=== PATIENT | female | born 1965 | race Caucasian/White ===

== ENCOUNTER → 2016-05-30 | Outpatient (CLI) | payer OTHER ==
--- NOTE | 2016-05-30 15:44 | MA ---
Screening Digital Mammogram With iCAD Analysis Clinical Indications: Routine screening. Her mother was diagnosed with breast cancer in her 60s and h er maternal grandmother in her 80s. Technique: Standard cephalocaudal projections are obtained. Digital breast tomosynthesis was performe d in the MLO projection with reconstruction at 1.0 mm slice thickness and composite MLO views reconst ructed. This examination is processed by the iCAD computer aided detection system. Comparison: May 2015, May 2014, March 2013, January 2012, November 2010, November 2008. Breast density: Type D: Extremely dense. Findings: CAD was reviewed. No masses, suspicious calcifications or secondary signs of malignancy are seen. There has been no significant change in the appearance of either breast. Impression: Negative mammogram. BI-RADS 1. Recommendation: Routine mammographic screening in one year as long as physical examination is negativ e in this patient with extremely dense breast parenchyma. [facility] will send a result letter to the patient. Negative mammography should not preclude additional workup of a clinically suspicious finding. The patient's information is entered into a reminder system with a target due date for her next mammo gram.
== END ==
LOC: FIMAGING 08:09
DX: Z12.31 Encounter for screening mammogram for malignant neoplasm of breast (principal); Z80.3 Family history of malignant neoplasm of breast
CPT/HCPCS: G0202

== ENCOUNTER → 2016-11-01 | Outpatient (CLI) | payer OTHER | LOC: CIMAGING 14:52 | PROVIDERS: ATTEND Internal Medicine Endocrinology, Diabetes & Metabolism | DX: E04.2 Nontoxic multinodular goiter (principal) | CPT/HCPCS: 76536-PO ==

== ENCOUNTER → 2017-04-03 | Outpatient (CLI) | payer OTHER | LOC: FIMAGING 11:06 | PROVIDERS: ATTEND Family Medicine | DX: N76.0 Acute vaginitis (principal); D25.2 Subserosal leiomyoma of uterus; Z97.5 Presence of (intrauterine) contraceptive device ==

== ENCOUNTER → 2017-06-26 | Outpatient (CLI) | payer OTHER | LOC: FIMAGING 08:55 | PROVIDERS: ATTEND Family Medicine | DX: Z12.31 Encounter for screening mammogram for malignant neoplasm of breast (principal); Z80.3 Family history of malignant neoplasm of breast ==

== ENCOUNTER 2018-01-12 04:19 | Emergency (ER) | payer OTHER ==
--- NOTE | 2018-01-12 04:44 | EDPHY ---
H & P Time Seen by Provider: 01/12/18 04:23 HPI/ROS: CC: woke up short of breath HPI: This 52-year-old female with past medical history including hyperthyroidism treated with radiation, uterine fibroids, anxiety, and teofilo- menopausal presents to the emergency department today feeling short of breath upon awakening at 4 a.m.. She used [employer] Stripper (# 64) this afternoon on a project with her son. He wore a respirator and she did not. She feels that maybe this is a side effect of that chemical. She felt fine in the evening before bed and has not been ill recently. She had a late dinner consisting of pizza and went to bed a few hours afterward. She has had a problem with reflux in the past. She has not had her routine thyroid labs in about a year. She is feeling like her heart is racing, her mouth is dry and she also feels very anxious. She started feeling dizzy while here in the ER but did not feel dizzy earlier. She has a family history of blood clots on her mother's side but she herself has never been diagnosed with a clotting disorder. No recent surgery, long trips/travel, no leg pain or swelling. She drove herself here. REVIEW OF SYSTEMS: Constitutional: No fever, no chills. Eyes: No discharge. ENT: No sore throat. Respiratory: Occasional cough. No wheezing. See HPI. Cardiac: No chest pain. Gastrointestinal: No abdominal pain, no vomiting. Genitourinary: No dysuria. Musculoskeletal: No back pain. Skin: No rashes. Neurological: No headache. Past Medical/Surgical History: PMH: Includes hyperthyroidism treated with radiation approximately 12 years ago , uterine fibroids, teofilo-menopausal, anxiety, ?reflux PSH: Breast reduction Mammoplasty x 2, x2 FH: Mother/hypertension and breast cancer. Thyroid cancer and blood clots on mother's side of family. Father/high cholesterol and skin cancer Allergies: Sulfa, Anaproxen, Adhesive tape Medications: None Social: Denies tobacco products, denies alcohol or drug use. PCP: Dr. Ashly Meyer Smoking Status: Never smoked Physical Exam: General Appearance: Alert, anxious. Eyes: Pupils equal and round no pallor or injection. ENT, Mouth: Mucous membranes are moist. No pharyngeal erythema. Uvula midline. Respiratory: There are no retractions, lungs are clear to auscultation. No rales, rhonchi, or wheezing. Cardiovascular: Regular rate and rhythm. No murmurs, gallops, or rubs. No ectopic beats. Gastrointestinal: Abdomen is soft and nontender, no masses, bowel sounds normal. Neurological: Awake and alert, sensory and motor exams grossly normal. Skin: Warm and dry, no rashes. Musculoskeletal: Neck is supple and nontender. Extremities are symmetrical, full range of motion. No calf swelling, warmth, cords, or erythema. Psychiatric: Patient is oriented X 3, there is no agitation. DIFFERENTIAL DIAGNOSIS: After history and physical exam differential diagnosis was considered for but not limited to: Chemical pneumonitis, pulmonary embolism , pericardial effusion, gastroesophageal reflux disease, anxiety, arrhythmia, anemia, electrolyte imbalance, hyperthyroidism, symptoms related to menopause. Constitutional: Initial Vital Signs Temperature (C) 97.3 F 01/12/18 04:20 Heart Rate 64 01/12/18 04:20 Respiratory Rate 18 01/12/18 04:20 Blood Pressure 110/78 01/12/18 04:20 O2 Sat (%) 99 01/12/18 04:20 O2 Delivery Mode Room Air Allergies/Adverse Reactions: Sulfa (Sulfonamide Antibiotics) Allergy (Severe, Verified 01/12/18 04:24) Fever Anaproxen Allergy (Severe, Uncoded 03/31/14 13:29) Facial swelling Tape adhesive Allergy (Severe, Uncoded 03/31/14 13:29) Rash, welts Home Medications: Medication Instructions Recorded NK [No Known Home Meds] 01/12/18 Medical Decision Making - Diagnostics EKG Interpretation: NSR, HR 60, Low voltage, No electrical alternans, no ectopic beats, no acute ischemic changes. ED Course/Re-evaluation: The patient was seen and examined. Vital signs were reviewed. The patient's heart rate was 65 beats per minute and her oxygen saturation was 98-100% on room air. Her blood pressure was 110/74. She does not meet PERC criteria to order a D-dimer and I have low suspicion for pulmonary embolism. Her EKG shows a sinus rhythm with a heart rate in the 60s with no ectopic beats. I do not feel an arrhythmia is causing her symptoms because she currently feels like she is having palpitations and a racing heart with a normal EKG. There are no murmurs or rubs to suggest a cardiac etiology. We have checked a CBC for anemia (normal) and a basic chemistry panel for electrolyte abnormality (normal with exception of mild hypokalemia which could be due to hyperventilation but have advised to increase potassium containing foods). We will send her blood for a TSH and free T4 as well. This will have to go to the main campus and she may follow up on this tomorrow or with her primary care provider at a follow-up appointment this coming week. I will give her a trial of an albuterol meter dose inhaler to see if that helps her symptoms. Her lungs are clear and she has normal O2 saturations and I do not feel a chest x-ray is warranted at this time. She may also have gastroesophageal reflux and was counseled on dietary choices as well as not eating within 4 hr of bedtime. She started feeling more calm after about 20 minutes in the ER. I will send her home with a take-home pack of Ativan as well for her feelings of anxiety. Again she should follow up with her primary care provider this week for re-evaluation and the patient understands that she may need further workup if the symptoms persist. She should return to the emergency room at any time if symptoms change or worsen as discussed. Departure - Departure Disposition: Home, Routine, Self-Care Clinical Impression: Palpitations, Hypokalemia Condition: Good Instructions: Heart Palpitations (ED), Gastroesophageal Reflux Disease (ED), Anxiety (ED), Pneumonitis (ED), Lorazepam (By mouth), Hypokalemia (ED) Additional Instructions: Follow up with your primary care provider this week (she can follow up on the Thyroid studies that were not resulted before you left the ER). Do not eat within four hours of lying down (before naps or at bedtime). Be mindful of the foods mentioned that can lead to reflux. Increase potassium containing foods. Use the Albuterol Inhaler as directed as needed for shortness of breath or wheezing. The lorazepam can be used up to three times a day for anxiety. Return to the ER if symptoms change or worsen. Referrals: Ashly Meyer MD [Medical Doctor] - As per Instructions
[2018-01-12] MEDS ORDERED: ALBUTEROL INH PREPACK MDI TAKEHOME ONE (04:45)
[2018-01-12] MEDS ORDERED: LORAZEPAM 1 MG PREPACK#4 BTL TAKEHOME ONE (05:18)
[2018-01-12 05:37] VITALS: BP 108/79
--- NOTE | 2018-01-13 03:16 | CPEKG ---
Test Reason : OPEN Blood Pressure : / mmHG Vent. Rate : 062 BPM Atrial Rate : 062 BPM P-R Int : 209 ms QRS Dur : 097 ms QT Int : 411 ms P-R-T Axes : 068 037 002 degrees QTc Int : 418 ms Sinus rhythm Borderline prolonged MO interval Low voltage, precordial leads Borderline T abnormalities, anterior leads Confirmed by Kimberly Lester ([id number]) on 01/13/2018 3:16:12 AM Referred By: Confirmed By:Kimberly Lester
--- NOTE | 2018-01-30 09:10 | CPEKG ---
Test Reason : Blood Pressure : / mmHG Vent. Rate : 060 BPM Atrial Rate : 060 BPM P-R Int : 208 ms QRS Dur : 096 ms QT Int : 417 ms P-R-T Axes : 075 052 000 degrees QTc Int : 417 ms Sinus rhythm Borderline prolonged IL interval Low voltage, precordial leads Borderline T abnormalities, anterior leads Confirmed by Magdy Grimaldo ([id number]) on 01/30/2018 9:09:22 AM Referred By: Confirmed By:Magdy Grimaldo
== END 2018-01-12 05:51 | disposition home or self-care (01) ==
LOC: CED 04:19
DX: R06.02 Shortness of breath (principal); R00.2 Palpitations; E83.51 Hypocalcemia; Z86.39 Personal history of other endocrine, nutritional and metabolic disease
CPT/HCPCS: 80048-PO

== ENCOUNTER → 2018-08-21 | Outpatient (CLI) | payer OTHER | LOC: FIMAGING 10:11 | PROVIDERS: ATTEND Family Medicine | DX: Z12.31 Encounter for screening mammogram for malignant neoplasm of breast (principal); Z80.3 Family history of malignant neoplasm of breast ==